=== PATIENT | male | born 1960 | race Caucasian/White ===

== ENCOUNTER → 2022-01-09 08:05 | Outpatient (CLI) | payer OTHER, SELFPAY ==
[2022-01-09 09:01] LABS: Add Manual Diff / Slide Review NO; Basophils Absolute Auto 0 /uL (0-100); Basophils Percent Auto 0.6 % (0-2); Eosinophils Absolute Auto 300 /uL (0-450); Eosinophils Percent Auto 3.7 % (2-4); Hematocrit 48.1 % (41-53); Hemoglobin 16.2 g/dL (13.5-17.5); Lymphocytes Absolute Auto 2000 /uL (1100-4500); Lymphocytes Percent Auto 26.2 % (25-40); Mean Corpuscular HGB Conc 33.6 % (30-36); Mean Corpuscular Hemoglobin 29.6 PG (26-34); Mean Corpuscular Volume 88.1 fL (80-100); Monocytes Absolute Auto 600 /uL (0-900); Monocytes Percent Auto 7.5 % (3-14); Neutrophils Absolute Auto 4700 /uL (1500-7000); Platelet Count 229 X10^3/uL (150-400); Red Blood Cell Count 5.45 X10^6/uL (4.5-5.9); Red Cell Distribution Width 13.7 % (11.6-14.8); White Blood Cell Count 7.6 X10^3/uL (4.5-11.0)
[2022-01-09 09:28] LABS: BUN Creatinine Ratio 34.3 (6-22); Blood Urea Nitrogen 24 mg/dL (9-20); Calcium 8.9 mg/dL (8.4-10.2); Carbon Dioxide 24 mmol/L (22-32); Chloride 104 mmol/L (98-107); Estimated Glomerular Filt Rate > 60 mL/min (>60); Glucose 102 mg/dL (80-110); HEMOLYSIS < 15 (0-50); Potassium 4.8 mmol/L (3.4-5.1); Sodium 138 mmol/L (137-145)
== END ==
PROVIDERS: PCP Internal Medicine; Referring Provider Orthopaedic Surgery Orthopaedic Surgery of the Spine; Visit Provider Orthopaedic Surgery Orthopaedic Surgery of the Spine
DX: Z01.818 Encounter for other preprocedural examination (principal); Z01.812 Encounter for preprocedural laboratory examination
CPT/HCPCS: 36415; 80048; 85025; 93005; 93010

== ENCOUNTER → 2022-02-11 09:44 | Outpatient (CLI) | payer OTHER, SELFPAY ==
[2022-02-11 10:50] LABS: COVID19 -Nasal RAPID Negative (Negative)
== END ==
PROVIDERS: PCP Internal Medicine; Referring Provider Orthopaedic Surgery Orthopaedic Surgery of the Spine; Visit Provider Orthopaedic Surgery Orthopaedic Surgery of the Spine
DX: Z20.822 Contact with and (suspected) exposure to COVID-19 (principal)
CPT/HCPCS: 87635; C9803

== ENCOUNTER 2022-02-13 06:05 | Inpatient (IN) | payer OTHER, SELFPAY ==
[2022-01-29 08:51] VITALS: BMI 35.7
[2022-02-13] VITALS (13 sets, daily range): BP systolic 145–172; BP diastolic 65–110; PULSE 68–101; RESP 16–31; TEMP 36–36.9; O2SAT 90–100; BMI 37.0
--- NOTE | 2022-02-13 | DI.RAD.S_ITS ---
PROCEDURE: XR CERVICAL SPINE 2V OR 3V INDICATIONS: C3-4 C4-5 C5-6 ACDF TECHNIQUE: Nondiagnostic intraoperative fluoroscopic views of the cervical spine. COMPARISON: None. FINDINGS: Nondiagnostic intraoperative fluoroscopic views of the cervical spine demonstrate postsurgical changes of C3-C5 ACDF with anterior plate and screws as well as interbody spacers. Hardware is intact and in expected position. Cervical spine alignment is normal. IMPRESSION: Expected appearance of hardware status post C3-C5 ACDF. Dictated by: Patrice Mina M.D. on 02/13/2022 at 15:33 Approved by: Patrice Mina M.D. on 02/13/2022 at 15:34
[2022-02-13] MEDS: LACTATED RINGERS 1,000 ML 42 ML IV (07:13)
--- NOTE | 2022-02-13 07:44 | PM.PREOP ---
Pre-operative Note COVID-19 COVID-19 status: Negative Result date/Date tested (Pos, Neg/Pending): 02/12/22 Criteria for continued procedure: Expected advancement of disease process, Possibility delay results in more complex future surgery or treatment, Increased loss of function, Continuing or worsening of significant or severe pain, Deterioration of the patient's condition or overall health and Delay expected to result in less-positive ultimate med/surg outcome Interval Note History & Physical reviewed/Exam performed by Physician: Yes Changes to H&P: No
[2022-02-13] MEDS: CEFAZOLIN 2 GM/100 ML PREMIX 100 ML IV ×3 (08:05→23:04)
--- NOTE | 2022-02-13 08:34 | SUR.OPER ---
Supine, head on gel donut. Arms padded with gel pads, tucked at sides, towel roll under shoulders. Safety belt at thigh. Legs uncrossed.
[2022-02-13] MEDS: BUPIVACAINE 0.25% (PF) 60 ML, EPINEPHrine 0.3 MG INJ (08:56)
--- NOTE | 2022-02-13 11:04 | PM.OP.1 ---
Operative Date/Time/Diagnoses Date of procedure: 02/13/22 Time of procedure: 07:45 Pre-op diagnosis: 1. C3-4, C4-5, C5-6 spinal stenosis 2. C3-4, C4-5, C5-6 spondylosis with radiculopathy Post-op diagnosis: same Procedure & Clinicians Procedure: 1. C3-4, C4-5, C5-6 anterior cervical diskectomy and fusion 2. C3-4, C4-5, C5-6 anterior interbody cage placement 3. C3-4, C4-5, C5-6 anterior instrumentation with plate and screw placement in C4-C5-C6 and C7 vertebrae 4. Utilization of microsurgical technique and operating microscope Same procedure as scheduled: Yes Indications: Patient has been having chronic neck pain and worsening cervical radiculopathy. Patient failed multiple conservative management with worsening pain weakness and numbness in her upper extremity. Patient has been having difficulty performing activity of daily living. After discussing risks benefits of treatment options, patient elected proceed with surgery. Surgeon: Yoan Collins Education And Training Manager: Yaz Goncalves Click Yes if Unassisted: No Anesthesia Type: General Operative Notes Closure Type: primary Specimen(s): none sent Prosthetic devices, grafts, tissues, transplants, or devices: Globus Extend Plate, Titanium interbody cages Applied: catheter Estimated Blood Loss (mL): 10 Blood products transfused: none Procedure in detail: Patient was seen in the preoperative area. Risks and benefits of the surgery was discussed with the patient. Operative consent was obtained and placed in the chart. Patient was then taken to the operative room. Prophylactic antibiotic was given less than 0.5 hr prior to skin incision. General anesthesia was administered. Patient was placed into a supine position on her radiolucent table. Bilateral shoulders were taped down to allow proper C-arm imaging. Anterior cervical area was prepped and draped in a sterile fashion. Time-out was performed at this time. Using lateral C-arm imaging, the level between C3 and C6 was identified and marked on patient's neck. A oblique incision from midline towards medial border of sternocleidomastoid muscle was made. The platysma muscle was incised in line with skin incision. Metzenbaum scissor was used to develop the plane between the medial border of sternocleidomastoid d and the strap muscles medially. The carotid sheath and its contents were identified and protected behind the hand-held retractor during the entire case. The plane between the carotid sheath and strap muscles was developed with Metzenbaum scissors. Dissection was made down to the level of the anterior cervical fascia. Longus colli muscle was incised on the anterior aspect of vertebral bodies bilaterally from C3-C6. Spinal needle was placed into the C3-4 disc space and confirmed with lateral C-arm imaging. Using microsurgical technique and operative microscope, anterior cervical diskectomy was performed at C3-4 C4-5 and C5-6 level. This was done by removing the disc material, removing the anterior and posterior osteophytes posterior longitudinal ligaments along with performing bilateral foraminotomies at all 3 levels. Patient was found to have severe central and foraminal stenosis at all 3 levels. Patient's stenosis was fully decompressed after decompression was completed. After the diskectomy was completed, 3 anterior interbody cages were obtained. The cages were packed with DBM bone grafting material. One cage each along with the bone grafting material was then packed into the interbody spaces from C3-C6 with one cage into each interbody level. After the cages were placed, the anterior cervical plate was stabilized to the C3-C6 vertebrae using 2 screws at each each level. Total 8 screws were placed. After confirming placement of the hardware with AP and lateral C-arm imaging, the screws were locked into the plate using the locking mechanism and torque limiting screwdriver. After the hardware was placed and confirmed with AP and lateral C-arm imaging, the wound was irrigated with sterile normal saline. The platysma muscle and the subcutaneous tissue was closed with 2-0 Vicryl. The skin was closed with 4-0 Monocryl and Steri-Strips. Patient tolerated the procedure well. Patient was transferred recovery room in stable condition. There were no complications. Complications: none Post-operative Condition: stable Disposition: PACU Plan for aftercare: Admit to inpatient hospital
[2022-02-13] MEDS: hydrOXYzine 50 MG/ML INJ 25 MG IM (11:25)
[2022-02-13] MEDS: LORazepam 2 MG/ML INJ 0.25 MG IV (11:29)
[2022-02-13] MEDS: OXYCODONE/ACETAMINOPHEN 5/325 TABLET 1 TAB PO (12:04)
--- NOTE | 2022-02-13 12:22 | SUR.PHASEI ---
Report called to Brook Arambula
--- NOTE | 2022-02-13 12:41 | SUR.PHASEI ---
Patient transferred to room 208 with belongings bag and glasses. Report given to Brook Arambula Neck dressing CDI, collar in place. Patient moving all extremities independently. VS stable. IV saline locked. Patient denied pain.
[2022-02-13] MEDS: SODIUM CHLORIDE 0.9% 1,000 ML 100 ML IV (13:29)
--- NOTE | 2022-02-13 13:41 | PC.NURSE ---
Pt to room 208 via bed from PACU. Pt is awake, alert, and oriented x 3. Denies pain, nausea, shortness of breath, or difficulty swallowing. Denies numbness or tingling. SCD's on and running, bed alarm on for safety, Pt oriented to room, call light, bed controls, and tv controls. Pt is aware that he is to do no heaving lifting and to not attempt to get out of bed without assistance. Spouse was at bedside for a bit but has left for now because Pt is resting. Pt denies needs at this time and agrees to call for assistance as needed.
--- NOTE | 2022-02-13 15:40 | PT.IIE ---
Current Diagnoses Other spondylosis with radiculopathy, cervical region (02/13/22) Spinal stenosis, cervical region (02/13/22) Surgery Performed Operation Date: 02/13/22 07:45 Actual Procedures p C3-4, C4-5, C5-6 ACDF w. anterior instrumentation - Yoan Collins MD Surgical History (Last Updated 01/29/22 @ 09:04 by Akanksha Martinez, RN) History of arthroplasty of right knee (~2008) History of arthroplasty of right shoulder History of total right hip arthroplasty (~2018) Hx of hernia repair Hx of rhinoplasty Medical History (Last Updated 01/29/22 @ 09:04 by Akanksha Martinez RN) HLD (hyperlipidemia) HTN (hypertension) Numbness and tingling Spinal stenosis, cervical region Physical Therapy Inpatient Evaluation/Re-Eval M1 PT/OT-IP Prior Functional Status Start: 02/13/22 15:02 Freq: NEEDED Status: Active Protocol: Document 02/13/22 15:40 AW (Rec: 02/13/22 16:54 AW [id number]) Medical Review Prior Functional Status Medical History Reviewed Yes Communication WNL. Pt is an effective verbal communicator. Mobility and Gait Independent without assistive device and without meaningful limit. Activities of Daily Living and IADL's Independent with all ADL and IADL needs including driving. Social History Household Members spouse,family Living Arrangements House Number of Floors (Floors) One Floor Number of Stairs To Enter/Railing? 1 HARPRE[address] throught the garage with a sturdy safe on the right side to hold on to. Home Environment High Toilet,Walk in Shower Home Equipment Straight Cane,Crutches,Manual Wheelchair,Shower Seat without Backrest,Grab Bars Near Toilet Additional Social History Comment Pt lives with his , Macy, and his mother-in- law. Macy provides care for MIL who has dementia. M2 PT-IP Current Condition Start: 02/13/22 15:02 Freq: NEEDED Status: Active Protocol: Document 02/13/22 15:40 AW (Rec: 02/13/22 16:54 AW [id number]) Physical Therapy Current Condition Current Condition Evaluation Date 02/13/22 Treatment Diagnosis s/p C3-C6 ACDF Onset Date 02/13/22 M3 PT-IP Subjective Start: 02/13/22 15:02 Freq: NEEDED Status: Active Protocol: Document 02/13/22 15:40 AW (Rec: 02/13/22 16:54 AW [id number]) Subjective Physical Therapy Visit Type Type Initial Evaluation Visit Start Time 15:15 Visit Stop Time 15:40 Total Visit Minutes 25 Notes SPT Beatrice Eldridge was present to observe. Pt consented to observation. Physical Therapy Visit Comments Patient Comments Pt would like to get up Patient Goals Return home with spouse support and return to regular activity. Therapy Pain Assessment Pain When Pain Assessed During Mobility Pain Present Pain Present Denied Pain M4 PT-IP Mobility and Gait Start: 02/13/22 15:02 Freq: NEEDED Status: Active Protocol: Document 02/13/22 15:40 AW (Rec: 02/13/22 16:54 AW [id number]) PT-Bed Mobility Assessment Rolling Type of Rolling Log Rolling,Roll to Left Level of Assist Standby Assistance Supine to Sit Supine to Sit Standby Assistance PT-Transfer Assessment Sit to and From Stand Sit to and from Stand Standby Assistance Equipment Transfer Assistive Device None,Gait Belt Orthotic/Prosthetic Devices or Brace: No Transfers Transfer Destination Chair Transfer Technique ambulated Transfer Ability Level of Assist Standby Assistance Comments Mobility Comments Pt was lying in bed as PT arrived. BP 167/92 HR 88 SpO2 96% on room air. PT educated pt on mobility techniques and soft collar precautions. He was able to log roll to his left side and sit up EOB SBA without cues. He stood and ambulated in the halls 100 feet with IV pole support and 100 feet without support SBA. On return to the room, pt stood in front of the mirror for education on soft collar management. Pt was able to don and doff independently. Pt entered the bathroom and stood at the toilet to void SBA. He then transferred to the chair where he was left with call light and all needs in reach. Gait Assessment Gait Gait Assistance Required: Standby Assistance Distance (Feet) 220 Able to Maintain Weight Bearing Status Yes During Gait Assistive Devices Assistive Device None,Gait Belt Gait Deviations General Gait Pattern Within Normal Limits,Wide Based Gait Comments Gait Comments No overt gait deviations were observed. Stair Climbing Assessment Evaluation Level of Assist On Stairs Standby Assistance Devices Stair Climbing Assistive Devices Right Railing Technique/Endurance Stair Climbing Direction Ascend and Descend Stair Climbing Technique Step Over Step,Step to Step Number of Steps Climbed 3 Query Text: Stair Climbing Set # Repetitions (reps) 1 Comments Stair Climbing Comments Reciprocating to ascend. Step- to with LLE leading to descend due to knee pain. PT-Balance Assessment Sitting Balance and Reactions Static Sitting Balance Ability Good Dynamic Sitting Balance Ability Good Standing Balance and Reactions Static Standing Balance Ability Good Dynamic Standing Balance Ability Good Device Used none M5 PT-IP Objective Assessments Start: 02/13/22 15:02 Freq: NEEDED Status: Active Protocol: Document 02/13/22 15:40 AW (Rec: 02/13/22 16:54 AW [id number]) Orientation Orientation/Cognition Level of Alertness Alert Orientation Name,Day of Week,Place, Situation Language Function Ability No Deficits Noted Safety Awareness Understands Safety Issues Gross Range of Motion Upper Extremity ROM Assessment Within Functional Limits Lower Extremity ROM Assessment Within Functional Limits Strength Lower Extremity Strength Assessment Within Functional Limits Sensation Assessment Sensation Gross Sensation WNL M6 PT-IP Treatment Start: 02/13/22 15:02 Freq: NEEDED Status: Active Protocol: Document 02/13/22 15:40 AW (Rec: 02/13/22 16:54 AW [id number]) Physical Therapy Treatment Education Education Provided Precautions,Post-Op Packet, Safety Brace Education [place],Patient Other Treatments Other Treatment Performed Provided handout regarding swallow precautions. 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 He is independent in all regards at baseline. He denied pain at this assessment and mobilized well without need for more than SBA. His will be able to assist him at home. He understands to use his soft collar for comfort and as a social cue. No further acute PT needs were identified. Pt will be safe to discharge home with assist once medically stable. Frequency of Treatment Frequency Of Treatment Discharge Recommendations To Nursing Amount of Assist Needed Standby Assistance Discharge Recommendations PT Discharge Recommendations Home with Assistance Transportation Needs at Discharge Private Vehicle
[2022-02-13] MEDS: DOCUSATE 100 MG CAPSULE PO (20:02)
[2022-02-13] MEDS: SENNOSIDES 8.6 MG TABLET 17.2 MG PO (20:02)
[2022-02-13] MEDS: ATORVASTATIN 20 MG TABLET 40 MG PO (20:02)
[2022-02-14 00:48] VITALS: BP 157/84; PULSE 84; RESP 18; TEMP 37; O2SAT 98
--- NOTE | 2022-02-14 08:44 | P.DS_ITS ---
History of Present Illness History of Present Illness Date Patient Seen: 02/14/22 Time Patient Seen: 08:44 Chief complaint: Cervical Fusion Anterior Narrative: Operative Date/Time/Diagnoses Date of procedure: 02/13/22 Time of procedure: 07:45 Pre-op diagnosis: 1. C3-4, C4-5, C5-6 spinal stenosis 2. C3-4, C4-5, C5-6 spondylosis with radiculopathy Post-op diagnosis: same Procedure & Clinicians Procedure: 1.? C3-4, C4-5, C5-6 anterior cervical diskectomy and fusion 2.? C3-4, C4-5, C5-6 anterior interbody cage placement 3.? C3-4, C4-5, C5-6 anterior instrumentation with plate and screw placement in C4-C5-C6 and C7 vertebrae 4.? Utilization of microsurgical technique and operating microscope Same procedure as scheduled: Yes Indications: Patient has been having chronic neck pain and worsening cervical radiculopathy. Patient failed multiple conservative management with worsening pain weakness and numbness in her upper extremity.? Patient has been having difficulty performing activity of daily living.? After discussing risks benefits of treatment options, patient elected proceed with surgery. Surgeon: Yoan Collins Direct Support Professional Caregiver: Yaz Goncalves Click Yes if Unassisted: No Anesthesia Type: General Operative Notes Closure Type: primary Specimen(s): none sent Prosthetic devices, grafts, tissues, transplants, or devices: Globus Extend Plate, Titanium interbody cages Applied: catheter Estimated Blood Loss (mL): 10 Blood products transfused: none Discharge Providers Provider Date of admission: 02/13/22 06:05 Discharge Date: 02/14/22 Primary care physician: Norman Mcdaniel MD Consults: 02/13/22 12:42 Consult to Occupational Therapy Evaluate & Treat Comment: Physician Instructions: Evaluate and treat Consult to Physical Therapy Evaluate & Treat Comment: Physician Instructions: Evaluate and Treat Discharge provider: Yaz Goncalves PA-C Summary Hospital Course Discharge Diagnosis: s/p ACDF Hospital Course: Mr Espinal's hospital course was unremarkable. On POD# 1 he was feeling well and wanted to go home. He stated his arm symptoms had resolved. He denied trouble swallowing and pain was well-controlled with minimal oral medication. No problems eating or voiding. He was evaluated by PT and felt to be appropriate for discharge home w/ family. Exam Vital Signs (past 8 hours): - 02/14/22 00:48 Temperature 98.6 F Pulse Rate 84 Respiratory Rate 18 Blood Pressure 157/84 H Pulse Oximetry 98 Oxygen Flow Rate 0 Oxygen Delivery Method Room Air Oxygen Flow Rate 0 Narrative Exam Narrative: 5/5 strength in deltoids, biceps, triceps, and supervisor extrusion. Sensation to light touch intact in BUE. Gauze and tegaderm to left neck is CDI. [facility] Medical History (Updated 01/29/22 @ 09:04 by Akanksha Martinez RN) HLD (hyperlipidemia) HTN (hypertension) Numbness and tingling Spinal stenosis, cervical region Surgical History (Updated 02/14/22 @ 08:50 by Yaz Goncalves PA-C) History of arthroplasty of right knee (~2008) History of arthroplasty of right shoulder History of total right hip arthroplasty (~2017) Hx of hernia repair Hx of rhinoplasty Social History household members: spouse and family Smoking Status: Never smoker alcohol intake: current Discharge Assessment & Plan Assessment and Plan Assessment: s/p C3-4, C4-5, C5-6 anterior cervical diskectomy and fusion Plan of Treatment: D/C home, soft collar PRN comfort. Discharge Plan Discharge Plan Patient Disposition: Home Discharge orders & Medications Prescriptions: New oxycodone 5 mg tablet 5 mg PO Q6H PRN (Reason: pain (scale score 7-10)) Qty: 40 0RF acetaminophen 325 mg Tablet 650 mg PO Q6HR PRN (Reason: Pain, Mild (1-3)) Qty: 240 0RF hydroxyzine pamoate 25 mg Capsule 25 mg PO Q4HR PRN (Reason: muscle spasm) Qty: 120 1RF docusate sodium 100 mg Capsule 100 mg PO BID PRN (Reason: constipation) Qty: 60 1RF Continued atorvastatin 40 mg Tablet 40 mg PO BEDTIME cetirizine [Zyrtec] 10 mg Tablet 10 mg PO DAILY amlodipine 5 mg Tablet 5 mg PO DAILY Discontinued naproxen [Naprosyn] 500 mg Tablet 500 mg PO QAM Follow up/Referrals: Norman Mcdaniel MD [Primary Care Provider] - Yoan Collins MD [Physician] - As previously scheduled (Follow up w/ RASHEEDA Azevedo on 02/26/2022 @ 1:00 pm at [facility] office in [place].) Diet/Activity/Treatments Diet: Diet as Tolerated Diet comment: Soft foods, lots of liquids, chew throroughly. Activity: Activity as tolerated. Soft collar for comfort; recommend wearing when upright (walking or sitting) for long periods of time. Some pts find it comfortable to wear at night as well. Cold/Heat Therapy: Heating pad to back of neck as needed for pain. Skin/Wound/Dressing Care Report to your healthcare provider any signs of infection, such as:: chills, fever, night sweats, unusual drainage and unusual redness Dressing: May shower; leave dressing in place until follow up appointment. May remove if it becomes wet inside; do not need to replace. Leave steri-strips intact. No bathing or otherwise soaking incision. Visit Report/Discharge Packet Instructions: DI for Anterior Cervical Discectomy and Fusion, DI for Pre scription Opioid Use Stand Alone Forms: Surgery Discharge Discharge Data Primary Care Provider: Norman Mcdaniel VTE Deep Vein Thrombosis/Pulmonary Embolism Present on Admission: No
[2022-02-14] MEDS: LORATADINE 10 MG TABLET PO (08:47)
[2022-02-14] MEDS: AMLODIPINE 5 MG TABLET PO (08:47)
--- NOTE | 2022-02-14 08:57 | OT.IPNOTE ---
Pt already dressed and sitting in the recliner. Pt states has no OT needs. Pt has good awareness for OT needs. Pt has a supportive to assist at home. NO charge
--- NOTE | 2022-02-14 10:40 | PC.NURSE ---
0930 Pt has showered and dressed for discharge home with Spouse. IV removed. soft collar in place. Dsg to neck cdi. Went over d/c instructions with Pt and Spouse-discussed d/c meds, time of last dose, reviewed stroke education, no heavy lifting, no driving if taking narcotics, do not take more than 3000mg of acetaminophen in 24 hours, s/s of infection, and follow up appointment. Pt denies further questions and was taken out via w/c by [employer] to POV with Spouse and all belongings.
--- NOTE | 2022-02-14 11:36 | CM.DPNOTE ---
Discharge Planning: Patient s/p spinal surgery on 02/13/[address]. Patient was discharged this morning before this DCP was able to assess him. Yu Echevarria RN/DCP
== END 2022-02-14 10:43 | disposition home or self-care (01) | DRG 473 ==
PROVIDERS: Admitting Provider Orthopaedic Surgery Orthopaedic Surgery of the Spine; PCP Internal Medicine; Referring Provider Orthopaedic Surgery Orthopaedic Surgery of the Spine; Visit Provider Orthopaedic Surgery Orthopaedic Surgery of the Spine
PROC: 0RG20A0 Fusion of 2 or more Cervical Vertebral Joints with Interbody Fusion Device, Anterior Approach, Anterior Column, Open Approach (ICD-10-PCS; principal; 2022-02-13 07:45)
DX: M48.02 Spinal stenosis, cervical region (principal); M47.22 Other spondylosis with radiculopathy, cervical region; I10 Essential (primary) hypertension; E78.5 Hyperlipidemia, unspecified; Z20.822 Contact with and (suspected) exposure to COVID-19
CPT/HCPCS: 72040; 76000; 82962; 97161; C1713; J0171; J0690; J2060; J2250; J2704; J3010; J3410